=== PATIENT | male | born 1975 | race Caucasian/White ===

== ENCOUNTER → 2020-02-28 | Outpatient (CLI) | payer OTHER ==
[~2020-02-28] MED LIST: ISOVUE-370 76% 100ML VIAL As Ordered ONE
--- NOTE | 2020-03-01 08:12 | REP ---
Clinical: Left renal mass. Technique: Axial contrast enhanced images of the abdomen and pelvis using 100 ml Isovue 370 intravenous contrast material along with precontrast, arterial phase and delayed phase images of the abdomen. Coronal and sagittal re-formations obtained. Comparison: Outside MRI examination dated 12/28/2019. Findings: There is a lobulated somewhat infiltrating heterogeneously enhancing left renal mass measuring approximately 6.5 cm maximal diameter which is consistent with renal cell carcinoma. Very minimal perinephric stranding is appreciated along with multiple suspicious small left pararenal retroperitoneal lymph nodes measuring up to 13 mm. Renal vasculature appears relatively normal and without obvious thrombosis. There is no associated hydronephrosis or obvious abnormality to the collecting system. Liver, spleen, splenule, pancreas, gallbladder, bilateral adrenal glands and right kidney are normal. The enteric system is without obstruction or acute inflammatory process. Few scattered colonic and sigmoid diverticula noted without acute diverticulitis. Pelvis demonstrates normal bladder and age appropriate prostate/seminal vesicles. No ascites. No free air. Osseous structures are intact and without focal pathologic lesion identified. Lung bases are clear. Impression: 1. 6.5 cm heterogeneously enhancing left renal mass consistent with renal cell carcinoma. Adjacent suspicious lymph nodes measure up to 13 mm. Left renal vasculature appears normal and without thrombosis. 2. Few scattered colonic diverticula. 3. No ascites. Electronically Signed by Salomon Peace MD 03/01/2020 08:03 A
== END ==
LOC: M RAD 08:10
PROVIDERS: ATTEND Nurse Practitioner Women's Health
DX: N28.89 Other specified disorders of kidney and ureter (principal); K57.30 Diverticulosis of large intestine without perforation or abscess without bleeding
CPT/HCPCS: 74170; Q9967

== ENCOUNTER → 2020-03-17 | Outpatient (CLI) | payer OTHER ==
[~2020-03-17] MED LIST changes: +DOCU100C16 PO; -ISOVUE-370 76% 100ML VIAL As Ordered ONE; +PERCOCET PO
== END ==
LOC: M LABSMTC 08:13
PROVIDERS: ATTEND Anesthesiology
CPT/HCPCS: C9803; U0003

== ENCOUNTER 2020-03-20 11:16 | Inpatient (IN) | payer OTHER ==
[~2020-03-20] VITALS: Ht 175.3 cm; Wt 116.6 kg
[~2020-03-20 11:16] MED LIST changes: -DOCU100C16 PO; +LIDOCAINE 2% 100MG/5ML SDV (FOR ANES.) As Ordered ONE; +LR 1,000 ML IV ONE; +MIDAZOLAM INJ 2MG/2ML VIAL (J2250 PER 1MG) As Ordered ONE; -PERCOCET PO; +ROCURONIUM BROMIDE 50 MG/5 ML VIAL As Ordered ONE; +ceFAZolin SOD 2 GM in IV 1 EA IV ONE; +dexameTHASONE 4 MG/ML 1ML VIAL (J1100 PER 1MG) As Ordered ONE; +fentaNYL 250 MCG/5 ML INJECTION (J3010) As Ordered ONE; +propofoL 200 MG/20 ML VIAL As Ordered ONE
[2020-03-20] MEDS ORDERED: BUPIVACAINE HCL 0.25% 30ML VIAL As Ordered ONE (11:38)
[2020-03-20] MEDS ORDERED: LIDOCAINE 1% SDV 30ML VIAL As Ordered ONE (11:39)
[2020-03-20] MEDS ORDERED: ONDANSETRON 4MG/2ML VIAL IV PRN ×2 (12:15→16:00)
[2020-03-20] MEDS ORDERED: PERCOCET 5MG/325MG TAB PO PRN (12:15)
[2020-03-20] MEDS ORDERED: ACETAMINOPHEN TAB 650MG DOSE (2X325MG) PO PRN (12:15)
[2020-03-20] MEDS ORDERED: oxyCODONE 5MG TAB PO PRN ×2 (12:15→16:00)
[2020-03-20] MEDS ORDERED: MORPHINE 2 MG/ML 1ML VIAL (J2270) IV PRN (12:15)
[2020-03-20] MEDS ORDERED: ROCURONIUM BROMIDE 50 MG/5 ML VIAL As Ordered ONE (13:47)
[2020-03-20] MEDS ORDERED: propofoL 200 MG/20 ML VIAL As Ordered ONE (13:48)
[2020-03-20] MEDS ORDERED: ACETAMINOPHEN 1000MG 100ML IV BTL (OFIRMEV) (J0131 PER 10MG) As Ordered ONE (13:48)
[2020-03-20] MEDS ORDERED: HYDROmorphone HCL 2 MG/ML 1ML VIAL (J1170) As Ordered ONE (14:06)
[2020-03-20] MEDS ORDERED: SUGAMMADEX SODIUM 500 MG/5 ML VIAL (BRIDION) As Ordered ONE (14:59)
[2020-03-20] MEDS ORDERED: ONDANSETRON 4MG/2ML VIAL As Ordered ONE (14:59)
[2020-03-20] MEDS ORDERED: LACRILUBE (AKWA TEARS) OPHTH OINT 3.5 GM As Ordered ONE (15:14)
[2020-03-20] MEDS: NS 1,000 ML IV SCH (15:51)
[2020-03-20] MEDS ORDERED: HYDROMORPHONE HCL 0.5 MG/ 0.5 ML SYRINGE (J1170 PER 1) IV PRN (16:00)
[2020-03-20] MEDS ORDERED: LR 1,000 ML IV SCH (16:00)
[2020-03-20] MEDS ORDERED: fentaNYL 100 MCG/2 ML INJECTION (J3010) IV PRN (16:00)
[2020-03-20 16:10] LABS: HEMATOCRIT 40.8 % (42.0-52.0); HEMOGLOBIN 14.2 g/dl (13.5-17.5); MEAN CORPUSCULAR HGB CONC 34.8 g/dl (32.0-36.5); MEAN CORPUSCULAR VOLUME 89.1 fl (80.0-96.0); PLATELET COUNT, AUTOMATED 214 10^3/uL (150-450); RED BLOOD COUNT 4.58 10^6/uL (4.30-6.10); WHITE BLOOD COUNT 10.1 10^3/uL (4.0-10.0)
--- NOTE | 2020-03-20 16:18 | ROOPDOC ---
[facility] Report Of Operation Report of Operation DATE OF PROCEDURE: 03/20/20 PREPROCEDURE DIAGNOSIS: Left Renal Neoplasm. POSTPROCEDURE DIAGNOSIS: Left Renal Neoplasm. PROCEDURE: Left robotic-assisted laparoscopic radical nephrectomy (adrenal- sparing). SURGEON: Cm Summers MD WARRANTY COORDINATOR: Silvia Freed ANESTHESIA: General OPERATIVE INDICATIONS: This is a 44-year-old male with a 6.5cm enhancing left renal mass concerning for renal cell carcinoma. It was recommended that he undergo the above procedure for treatment. DESCRIPTION OF PROCEDURE: The patient was brought to the operating room where general anesthesia was induced. Prophylactic antibiotics were infused. A Henry catheter was placed under sterile conditions. Next, the patient was placed in the right lateral decubitus position. All pressure points were appropriately padded and an axillary roll was placed. We then secured the patient to the table with tape. His abdomen was then prepped and draped in the usual sterile fashion. Next, an 8mm incision was made in line with the 11th rib along the lateral border of the rectus. Pneumoperitoneum was achieved with a Veress needle. Next, an 8mm port was placed for the camera. At this point, the left robotic port was placed off the costal margin. Two right hand robotic ports were then placed with one between the anterior superior iliac spine and the hip and the other one just caudal to the camera port. The one just caudal to the camera port was a 12mm robotic port. Last the 15 mm customer marketing assistant port was placed inferior and medial to the camera port. The robot was then docked. Attachments between the spleen and the Gerota's fascia were then released. The left colon was then mobilized medially. At this point, after mobilizing the left colon completely, we then developed a plane onto the psoas muscle off the lower pole of the kidney. The left gonadal vein was identified and was carried cephalad until the left renal vein was encountered. Just cephalad to vein the renal artery was identified. It was then carefully dissected and ligated with 3 Weck clips and then transected in between, leaving 2 Weck clips on the stay side. The ame vein was then carefully dissected. It was then ligated with a robotic vascular load stapler and transected. The kidney was then mobilized and on all sides. The adrenal gland was dissected off and spared. The ureter was then ligated with Weck clips and transected in between. The kidney was then completely free. At this point, we checked for hemostasis and hemostasis appeared excellent. Swathi hemostatic agent was applied over the hilum. We then placed the left kidney in a large EndoCatch bag. This bag was closed and then left for future retrieval. We then undocked the robot and a [place] fascial closure device was utilized to place a 0-vicryl suture through the fascia of the 15mm port site. We then extended the incision of the 12mm right hand robotic port site to extract the specimen. We then dissected down through the musculofascial layers and extended the fascia. The muscle was bluntly spread, and we then extracted the specimen through this incision. Once that was done, we checked for hemostasis through the extraction incision and it appeared excellent. The fascia of this incision was then closed with a running #0 Vicryl suture. At this point, the abdomen was then reinsufflated. We looked at the extraction incision, and there was no active bleeding and no abdominal contents were caught within the suture. Once this was done, all the remaining ports were removed and there was no bleeding. We then tied down the #0 Vicryl suture in the 15mm port site. Once this was done, all wounds were thoroughly irrigated. The subcutaneous fat of the extraction incision was then closed with interrupted #3-0 Vicryl sutures. We then closed the skin of all incisions using subcuticular #4-0 Monocryl suture. Local anesthetic was then applied and then Dermabond was applied and marked the conclusion of the procedure. The patient was then taken out of the right lateral decubitus position, awakened from anesthesia and transported to the recovery room in stable condition. ESTIMATED BLOOD LOSS: 10mL. COMPLICATIONS: None. SPECIMENS: Left kidney. PLAN: The patient will be admitted to the hospital postoperatively for monitoring and discharged once his pain is controlled and his kidney function is stable. CM SUMMERS MD Mar 20, 2020 16:17
[2020-03-20 16:30] LABS: BLOOD UREA NITROGEN 13 MG/DL (7-18); CALCIUM LEVEL 8.2 MG/DL (8.5-10.1); CARBON DIOXIDE LEVEL 27 MEQ/L (21-32); CHLORIDE LEVEL 106 MEQ/L (98-107); CREATININE FOR GFR 1.21 MG/DL (0.70-1.30); GLOMERULAR FILTRATION RATE > 60.0 (>60); GLUCOSE, FASTING 160 MG/DL (70-100); POTASSIUM SERUM 4.1 MEQ/L (3.5-5.1); SODIUM LEVEL 139 MEQ/L (136-145)
[2020-03-20 17:16] VITALS: BP 130/86
[2020-03-20 18:00] VITALS: BP 132/89
[2020-03-20 20:00] VITALS: BP 136/90
[2020-03-20] MEDS: DOCUSATE SODIUM 100 MG CAP PO SCH (20:11)
[2020-03-20] MEDS: ceFAZolin SOD 1 GM in D5W MINI-BAG PLUS 50 ML IV SCH (20:11)
[2020-03-20 23:30] VITALS: BP 139/91
[2020-03-21 03:30] VITALS: BP 147/94
[2020-03-21] MEDS: ceFAZolin SOD 1 GM in D5W MINI-BAG PLUS 50 ML IV SCH (04:08)
[2020-03-21 05:45] LABS: HEMATOCRIT 40.7 % (42.0-52.0); MEAN CORPUSCULAR HEMOGLOBIN 30.4 pg (27.0-33.0); MEAN CORPUSCULAR HGB CONC 34.4 g/dl (32.0-36.5); MEAN CORPUSCULAR VOLUME 88.5 fl (80.0-96.0); PLATELET COUNT, AUTOMATED 243 10^3/uL (150-450); WHITE BLOOD COUNT 12.4 10^3/uL (4.0-10.0)
[2020-03-21 06:00] VITALS: BP 148/94
[2020-03-21 06:07] LABS: CALCIUM LEVEL 8.4 MG/DL (8.5-10.1); CREATININE FOR GFR 1.49 MG/DL (0.70-1.30); GLOMERULAR FILTRATION RATE 55.1 (>60); POTASSIUM SERUM 4.2 MEQ/L (3.5-5.1)
[2020-03-21] MEDS: NS 1,000 ML IV SCH (08:10)
--- NOTE | 2020-03-21 09:53 | IPNPDOC ---
Subjective Review oF Systems Chief Complaint The patient is a 44-year-old male admitted with a reason for visit of Renal Mass Left. Events since Last Encounter No acute events o/n. Good pain control. No n/v. no f/c/ns. Objective Physical Examination General Exam: Alert, Cooperative, No Acute Distress ABDOMEN EXAM: Soft, Tenderness (mild), Other (incisions clean/dry/intact) Skin Exam: Nl turgor and temperature Neuro Exam: Normal Speech Psych Exam: Mood NL Other physical findings catheter draining yellow urine Vital Signs/I&O Vital Signs Date Time Temp Pulse Resp B/P (MAP) Pulse Ox O2 Delivery O2 Flow Rate FiO2 03/21/20 06:00 98.9 95 18 148/94 (112) 96 Room Air 03/20/20 20:00 2.0 I&O- Last 24 Hours up to 6 AM 03/21/20 06:00 Intake Total 2930 ml Output Total 1310 ml Balance 1620 ml Laboratory Data Labs 24H Laboratory Tests 2 03/20/20 15:59: Nucleated Red Blood Cells % (auto) 0.0, Anion Gap 6L, Glomerular Filtration Rate > 60.0, Calcium Level 8.2L 03/21/20 05:11: Nucleated Red Blood Cells % (auto) 0.0, Anion Gap 9, Glomerular Filtration Rate 55.1L, Calcium Level 8.4L CBC/BMP Laboratory Tests 03/20/20 15:59 03/21/20 05:11 Assessment/Plan Date Seen The patient was seen on 03/21/20. Patient Summary This is a 44 y/o M POD1 s/p L robotic radical nephrectomy. He is doing well. His Hb is stable. His Cr is 1.5 from 1.2 postop. He has good UOP. Plan/VTE VTE Prophylaxis Ordered?: Yes VTE Exclusion Mechanical Proph: N/A:VTE Prophy Ordered Plan/Urinary Catheter Urinary Catheter: D/C Henry Plan - d/c Henry - d/c IVF - percocet prn pain - encourage hydration w/ water - strict I/Os - SCDs when in bed - ambulate - possible discharge home later today CM SUMMERS MD Mar 21, 2020 09:53
[2020-03-21] MEDS: DOCUSATE SODIUM 100 MG CAP PO SCH (10:36)
[2020-03-21 14:00] VITALS: BP 138/82
[2020-03-21 15:19] LABS: CALCIUM LEVEL 8.8 MG/DL (8.5-10.1); CREATININE FOR GFR 1.67 MG/DL (0.70-1.30); GLOMERULAR FILTRATION RATE 48.3 (>60); POTASSIUM SERUM 4.2 MEQ/L (3.5-5.1)
[2020-03-21] MEDS ORDERED: PERCOCET PO (16:22)
[2020-03-21] MEDS ORDERED: DOCU100C16 PO (16:22)
--- NOTE | 2020-03-27 13:12 | DSES ---
DATE OF ADMISSION: 03/20/2020 DATE OF DISCHARGE: 03/21/2020 ADMISSION DIAGNOSIS: Left renal neoplasm. DISCHARGE DIAGNOSIS: Left renal cell carcinoma. ADMITTING PHYSICIAN: Rodger Landaverde MD DISCHARGE PHYSICIAN: Rodger Landaverde MD PROCEDURE PERFORMED: Left robotic-assisted laparoscopic radical nephrectomy on 03/20/2020. HISTORY OF PRESENT ILLNESS: This is a 44-year-old male who was found to have a large left enhancing renal mass concerning for cancer. He underwent the above-listed procedure and was admitted to the hospital postoperatively. HOSPITALIZATION COURSE: The patient was admitted to the hospital after undergoing the above-listed procedure. His postoperative course was unremarkable. Postoperative day #1, his labs were notable for a stable hemoglobin level and a creatinine, which robina to 1.5. His labs were checked again later in the afternoon and his creatinine robina a tiny bit more to 1.67. He had excellent urine output throughout his stay. He was ambulating well on postoperative day #1 with very good pain control. He only required oral pain medications for pain control. His diet was advanced and he was tolerating a regular diet. By the afternoon of postoperative day #1, he was deemed ready for discharge home. He was therefore discharged home on postoperative day #1 with a plan for him to followup in the urology clinic in about 1-2 weeks for a postoperative visit. At the time, his pathology results will be discussed and we will also get a recheck on his labs at that time to see whether his kidney function has settled down. MARTY
== END 2020-03-21 19:01 | disposition home or self-care (01) | DRG 442 ==
LOC: M OR 11:16 → M MSPAV 17:10
PROVIDERS: ADMIT Urology; ATTEND Urology
PROC: 8E0W4CZ Robotic Assisted Procedure of Trunk Region, Percutaneous Endoscopic Approach (ICD-10-PCS; 2020-03-20)
PROC: 0TT14ZZ Resection of Left Kidney, Percutaneous Endoscopic Approach (ICD-10-PCS; principal; 2020-03-20 13:30)
DX: C64.2 Malignant neoplasm of left kidney, except renal pelvis (principal)